=== PATIENT | male | born 1970 | race Two or more races ===

== ENCOUNTER → 2018-04-10 | Outpatient (CLI) | payer OTHER, MEDICAID ==
[~2018-04-10] MED LIST: ESCI20TA51 PO; IBUP200C11 PO; LEVO500T21 PO
[2018-04-10 12:32] LABS: Basophils # (auto) 0 uL; Basophils % (auto) 0.8 % (0.0-2.0); Eosinophils # (auto) 0.1 uL; Eosinophils % (auto) 2.2 % (0.0-7.0); Hematocrit 45.4 % (41.0-53.0); Hemoglobin 15.3 g/dL (13.5-17.5); Lymphocytes # (auto) 0.5 uL; Lymphocytes % (auto) 12.7 % (10.0-50.0); Mean Corpuscular Hemoglobin 32.3 pg (28.0-32.0); Mean Corpuscular Hgb Conc. 33.7 g/dL (32.0-36.0); Mean Corpuscular Volume 95.8 fL (80.0-100.0); Monocytes # (auto) 0.3 uL; Monocytes % (auto) 7.1 % (0.0-12.0); Neutrophils # (auto) 3.3 uL; Neutrophils % (auto) 77.2 % (37.0-80.0); Nucleated Red Blood Cells % 0.1 %; Platelet Count (auto) 222 10^3/uL (140-450); Red Blood Cells 4.74 10^6/uL (4.5-5.90); Red Cell Distribution Width 13.5 % (11.8-14.3); White Blood Cell 4.3 10^3/uL (4.4-10.8)
[2018-04-10 13:18] LABS: BUN/Creatinine Ratio 15.1; Bilirubin, Total 0.5 mg/dL (0.2-1.0); Calcium 9.1 mg/dL (8.5-10.1); Total Protein 7.1 g/dL (6.4-8.2)
== END | disposition home or self-care (01) ==
LOC: LAB 11:58
PROVIDERS: ATTEND Physician Assistant
DX: E55.9 Vitamin D deficiency, unspecified (principal); M54.5 Low back pain; R53.82 Chronic fatigue, unspecified; F79 Unspecified intellectual disabilities; Z87.442 Personal history of urinary calculi
CPT/HCPCS: 36415; 80053; 80061; 82306; 84403; 85025

== ENCOUNTER 2024-11-24 11:40 | Emergency (ER) | payer MEDICARE, OTHER ==
[~2024-11-24] VITALS: Ht 170.2 cm; Wt 50.9 kg
[~2024-11-24 11:40] MED LIST changes: +ESCI1TAB37 PO; -ESCI20TA51 PO; -LEVO500T21 PO; +LEVO500T31 PO
--- NOTE | 2024-11-24 11:52 | ED.PDOC ---
Musculoskeletal HPI Comments 54 year old male accompanied by legal guardian presents to the ED with chief complaint of leg pain. Guardian reports patient has been experiencing intermittent left leg pain for the past 2 weeks. Guardian relays that the patient has no obvious bruising, injury, swelling, or discoloration, however, patient continues to complain of pain. Patient denies any fall, chest pain, SOB, dizziness, numbness, weakness, or injury. Time Seen by MD: 11:48 Primary Care Provider: CARLOS Jaimes Notes: Nurses Notes, Medications, Allergies Allergies: Coded Allergies: NO KNOWN ALLERGIES (Unverified , 09/17/13) Home Meds Active Scripts Ibuprofen (Ibuprofen Childrens) 100 Mg/5 Ml Lory, 100 MG PO DAILY for 5 Days, #50 ML Prov:HARDY HARDWICK MD 11/24/24 Levofloxacin (Levaquin) 500 Mg Tab, 500 MG PO DAILY for 11 Days, TAB Prov:TANVIR TUCKER MD 03/07/15 Reported Medications Escitalopram Oxalate (ESCITALOPRAM OXALATE) 20 Mg Tab, 20 MG PO DAILY, #90 03/05/15 Ibuprofen (Advil Migraine) 200 Mg Cap, 600 MG PO BID, #60 03/05/15 Information Source: Patient, Legal Guardian Mode of Arrival: Ambulatory Location: Left Extremity Location: Leg Timing: Weeks Prehospital treatment: None Severity: Moderate Able to Move Extremity: Yes Bear Weight: Fully Pain: Moderate Mechanism: Unknown Circumstances: Unknown Onset of Symptoms: Spontaneous Symptoms: Pain DVT Risk Factors: NONE Last Tetanus: Unknown Past Medical History Past Medical History (Other): Autism Surgical History: Denies all surgeries Family History Family History: Reviewed,noncontributory to illness, Unobtainable Social History Smoker: Non-Smoker Alcohol: Denies ETOH Use Drugs: Denies Drug Use Lives In: Home Constitutional: denies: chills, diaphoresis, fatigue, fever, malaise, sweats, weakness, others EENTM: denies: blurred vision, double vision, ear bleeding, ear discharge, ear drainage, ear pain, ear ringing, eye pain, eye redness, hearing loss, mouth pain, mouth swelling, nasal discharge, nose bleeding, nose congestion, nose pain, photophobia, tearing, throat pain, throat swelling, voice changes, others Respiratory: denies: cough, hemoptysis, orthopnea, SOB at rest, shortness of breath, SOB with excertion, stridor, wheezing, others Cardiovascular: denies: chest pain, dizzy spells, diaphoresis, Dyspnea on exertion, edema, irregular heart beat, left arm pain, lightheadedness, pa lpitations, PND, syncope, others Gastrointestinal: denies: abdomen distended, abdominal pain, blood streaked bowels, constipated, diarrhea, dysphagia, difficulty swallowing, hematemesis, melena, nausea, poor appetite, poor fluid intake, rectal bleeding, rectal pain, vomiting, others Genitourinary: denies: burning, dysuria, flank pain, frequency, hematuria, incontinence, penile discharge, penile sore, pain, testicle pain, testicle swelling, urgency, others Neurological: denies: dizziness, fainting, headache, left sided numbness, left sided weakness, numbness, paresthesia, pre-existing deficit, right sided numbness, right sided weakness, seizure, speech problems, tingling, tremors, weakness, others Musculoskeletal: reports: others (Lt leg pain); denies: back pain, gout, joint pain, joint swelling, muscle pain, muscle stiffness, neck pain Integumetry: denies: bruises, change in color, change in hair/nails, dryness, laceration, lesions, lumps, rash, wounds, others Allergic/Immunocompromised: denies: Difficulty Healing, Frequent Infections, Hives, Itching, others Hematologic/Lymphatic: denies: anemia, blood clots, easy bleeding, easy bruising, swollen glands, others Endocrine: denies: excessive hunger, excessive sweating, excessive thirst, excessive urination, flushing, intolerance to cold, intolerance to heat, unexplained weight gain, unexplained weight loss, others Psychiatric: denies: anxiety, bipolar disorder, depression, hopeless, panic disorder, schizophrenia, sleepless, suicidal, others All Other Systems: Reviewed and Negative Physical Exam General Appearance: Moderate Distress, Normal HEENT: Normal ENT Inspection, PERRL/EOMI Neck: Full Range of Motion, Non-Tender, Normal, Normal Inspection Respiratory: Chest Non-Tender, Lungs Clear, No Accessory Muscle Use, No Respiratory Distress, Normal Breath Sounds Cardiovascular: No Edema, No JVD, No Murmur, No Gallop, Normal Peripheral Pulses, Regular Rate/Rhythm Breast Exam: Deferred Gastrointestinal: No Organomegaly, Non Tender, No Pulsatile Mass, Normal Bowel Sounds, Soft Genitalia: Deferred Pelvic: Deferred Rectal: Deferred Extremities: No calf tenderness, Normal capillary refill, Normal inspection, Normal range of motion, Non-tender, No pedal edema Musculoskeletal : Apperance: Normal Neurologic: Alert, senior boiler operator II-XII nml as Tested, No Motor Deficits, Normal Affect, Normal Mood, No Sensory Deficits Cerebellar Function: Normal Reflexes: Normal Skin: Dry, Normal Color, Warm Peripheral Pulses: 3+ Radial (R), 3+ Radial (L) Lymphatic: No Adenopathy Was a procedure done? Was a procedure done?: No Differential Diagnosis EXT Differential Diagnosis: Deep Vein Thrombosis, Sprain, Contusion, Strain X-Ray, Labs, Meds, VS Vital Signs Date Time Temp Pulse Resp B/P (MAP) Pulse Ox O2 Delivery O2 Flow Rate FiO2 11/24/24 12:20 126 16 100 Room Air* 0 21 11/24/24 12:20 98.6 126 16 133/77 (95) 97 98.6 11/24/24 12:09 98.0 103 18 143/89 (107) 97 Current Medications Medications (Trade) Dose Ordered Sig/Cisco Route Start Time Stop Time Status Last Admin Acetaminophen/ Hydrocodone Bitart (Bol[place] 10/325MG Tab) 1 tab ONCE ONCE PO 11/24/24 12:00 11/24/24 12:01 DC 11/24/24 12:40 Patient alert. Complaining of left lower extremity pain. Vitals stable. Answering all questions. No trauma. Was given Bolton. Was given prescription of Motrin. Explained to the family. Ultrasound reviewed does not show any acute changes. Clinical examination heart rate within normal limits. Saturation pristine on room air. Was told to follow up with his primary care physician. Was told to come back if there is any problem. Time of 1ST Reevaluation: 12:48 Reevaluation 1ST: Improved Patient Education/Counseling: Diagnosis, Treatment Family Education/Counseling: Diagnosis, Treatment Additional Information I reviewed the following notes from patient's past medical encounters: 03/17/15 for Genital pain The following tests were ordered, and results were reviewed by me: Lt Lower DVT US Additional Information was gathered from interviewing the following independent historians: Ammonium Nitrate Crystallizer/Guardian I reviewed and agreed with the following test results read by other providers: Lt Lower DVT US I discussed treatment and results with medical personnel and guardian. Departure 1 Departure Time of Disposition: 13:08 Impression: Primary Impression: Muscle cramp Disposition: 01 HOME / SELF CARE / HOMELESS Condition: Good e-Prescriptions Ibuprofen (Ibuprofen Childrens) 100 Mg/5 Ml Lory 100 MG PO DAILY for 5 Days, #50 ML Prov: HARDY HARDWICK MD 11/24/24 Discharged With: Commercial Field Inspector Critical Care Note Critical Care Time?: No Stability Stability form required: No Heart Score Heart Score: Heart Score Response (Comments) Value History N/A 0 EKG N/A 0 Age N/A 0 Risk Factors N/A 0 Troponin N/A 0 Total 0 I personally scribed for HARDY HARDWICK MD ([email or web address]) on 11/24/24 at 11:52. Electronically submitted by Nino Kat ([email or web address]). HARDY HARDWICK MD Nov 24, 2024 11:52
[2024-11-24 12:20] VITALS: BP 133/77; PULSE 126; RESP 16; TEMP 98.6; O2SAT 100
[2024-11-24] MEDS: HYDROcodone-ACET 10/325MG TAB PO ONE (12:40)
--- NOTE | 2024-11-24 12:50 | DVH ---
Left lower extremity venous duplex Clinical History: dvt Comparison: None Technique: Duplex Doppler evaluation of the deep venous system of the left lower extremity from the common femor al vein to the popliteal vein including color Doppler and spectral/pulsed waveform analysis was perfo rmed. Findings: The common femoral vein demonstrates appropriate compressibility and waveform variability. There is compressibility/patency of the great saphenous vein at the proximal thigh. The femoral vein demonstrates appropriate compressibility and waveform variability. The deep femoral vein demonstrates appropriate compressibility and waveform variability. The popliteal vein demonstrates appropriate compressibility and waveform variability. There is normal compressibility at the tibioperoneal trunk. Impression: No left femoropopliteal venous thrombosis.
[2024-11-24] MEDS ORDERED: IBUP-2008 PO (13:10)
== END 2024-11-24 13:30 | disposition home or self-care (01) ==
LOC: ER 11:40
DX: M79.605 Pain in left leg (principal); Z79.1 Long term (current) use of non-steroidal anti-inflammatories (NSAID); Z79.899 Other long term (current) drug therapy
CPT/HCPCS: 93971